=== PATIENT | male | born 1990 | race Two or more races ===

== ENCOUNTER 2019-04-08 12:52 | Emergency (ER) | payer SELFPAY ==
--- NOTE | 2019-04-08 13:21 | ER Document Report ---
ED General - General Chief Complaint: Dizziness Stated Complaint: LEFT HAND PAIN,DIZZINESS Time Seen by Provider: 04/08/19 13:04 Primary Care Provider: [facility] [Provider Group] - Follow up as needed Mode of Arrival: Ambulatory Information source: Patient Notes: This 28-year-old healthy male presents the emergency department with complaints of left hand numbness for the past 2 months since he received a tattoo on his left wrist. Patient is right-hand dominant. He also reports that he became extremely dizzy today at work and is feeling increasingly tired. He denies fever vomiting diarrhea. Denies trauma. Reports he has done push-ups for most of his life but no recent heavy lifting of weights. Reports feels like his heart skips a beat every now and then. Reports family history of cardiac disease. TRAVEL OUTSIDE OF THE [place] IN LAST 30 DAYS: No - HPI Onset: Other Onset/Duration: Persistent Quality of pain: No pain Associated symptoms: None Exacerbated by: Denies Relieved by: Denies Similar symptoms previously: No Recently seen / treated by doctor: No - Related Data Allergies/Adverse Reactions: No Known Allergies Allergy (Verified 06/23/16 14:41) Past Medical History - General Information source: Patient - Social History Smoking Status: Current Every Day Smoker Cigarette use (# per day): Yes Frequency of alcohol use: Occasional Drug Abuse: Marijuana Occupation: [employer] Lives with: Family Family History: CAD, CVA, DM, Hyperlipidemia, Hypertension - Medical History Medical History: Negative Neurological Medical History: Reports: Hx Migraine Surgical Hx: Negative - Immunizations Hx Diphtheria, Pertussis, Tetanus Vaccination: No Review of Systems - Review of Systems Notes: Review HPI for review of systems., All other systems negative Physical Exam - Vital signs Vitals: Temp Pulse Resp BP Pulse Ox 98.5 F 83 16 117/102 H 98 04/08/19 12:55 04/08/19 12:55 04/08/19 12:55 04/08/19 12:55 04/08/19 12:55 - General General appearance: Appears well, Alert In distress: None - HEENT Head: Normocephalic, Atraumatic Eyes: Normal - Respiratory Respiratory status: No respiratory distress Chest status: Nontender Breath sounds: Normal Chest palpation: Normal - Cardiovascular Rhythm: Regular Heart sounds: Normal auscultation Murmur: No - Abdominal Inspection: Normal Distension: No distension Tenderness: Nontender - Extremities General upper extremity: Nontender, Normal color, Normal ROM General lower extremity: Normal ROM Wrist: Nontender Hand: Nontender - Neurological Neuro grossly intact: Yes Cognition: Normal Orientation: AAOx4 [place] Coma Scale Eye Opening: Spontaneous [place] Coma Scale Verbal: Oriented [place] Coma Scale Motor: Obeys Commands [place] Coma Scale Total: 15 Speech: Normal Cranial nerves: Normal Cerebellar coordination: Normal Motor strength normal: LUE, RUE, LLE, RLE 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 No: Altered light touch, 2-pt discrimination, Pin-prick - Psychological Associated symptoms: Normal affect, Normal mood - Skin Skin Temperature: Warm Skin Moisture: Dry Skin Color: Normal Course - Re-evaluation Re-evalutation: 04/08/19 13:19 This 28-year-old male presents the emergency department with complaints that his left hand is numb for the past couple months since he received a tattoo on his left wrist. The wrist itself looks benign, tattoo in place no erythema no swelling no warmth. Patient reports he became very dizzy at work and his left hand numbness seemed more pronounced. He denies fever vomiting diarrhea. Denies trauma. Reports he feels like his heart skips a beat every now and then and also reports he is been feeling very tired. Will evaluate with EKG labs. Patient looks good nontoxic looking. Possible carpal tunnel on his left wrist. Labs unremarkable EKG was sinus rhythm with a PVC. No ST elevation no T wave inversion. Patient was instructed on all labs. Instructed to follow-up with the primary care provider given a list. 04/08/19 13:55 04/08/19 13:55 MCV 88 fl (80-97) 04/08/19 13:55 MCH 30.0 pg (27.0-33.4) 04/08/19 13:55 MCHC 34.1 g/dL (32.0-36.0) 04/08/19 13:55 RDW 13.0 % (11.5-14.0) 04/08/19 13:55 Seg Neutrophils % 56.2 % (42-78) 04/08/19 13:55 Lymphocytes % 31.3 % (13-45) 04/08/19 13:55 Monocytes % 7.1 % (3-13) 04/08/19 13:55 Eosinophils % 4.1 % (0-6) 04/08/19 13:55 Basophils % 1.3 % (0-2) 04/08/19 13:55 Absolute Neutrophils 4.7 10^3/uL (1.7-8.2) 04/08/19 13:55 Absolute Lymphocytes 2.6 10^3/uL (0.5-4.7) 04/08/19 13:55 Absolute Monocytes 0.6 10^3/uL (0.1-1.4) 04/08/19 13:55 Absolute Eosinophils 0.3 10^3/uL (0.0-0.6) 04/08/19 13:55 Absolute Basophils 0.1 10^3/uL (0.0-0.2) 04/08/19 13:55 Chloride 105 mmol/L (98-107) 04/08/19 13:55 Carbon Dioxide 28 mmol/L (22-30) 04/08/19 13:55 Anion Gap 10 (5-19) 04/08/19 13:55 Est GFR ( Amer) > 60 (>60) 04/08/19 13:55 Est GFR (Non-Af Amer) > 60 (>60) 04/08/19 13:55 Glucose 89 mg/dL (75-110) 04/08/19 13:55 Calcium 9.9 mg/dL (8.4-10.2) 04/08/19 13:55 Total Bilirubin 0.4 mg/dL (0.2-1.3) 04/08/19 13:55 AST 22 U/L (17-59) 04/08/19 13:55 Alkaline Phosphatase 49 U/L (38-126) 04/08/19 13:55 Total Protein 8.0 g/dL (6.3-8.2) 04/08/19 13:55 Albumin 4.7 g/dL (3.5-5.0) 04/08/19 13:55 Urine Color YELLOW 04/08/19 13:55 Urine Appearance CLEAR 04/08/19 13:55 Urine pH 5.0 (5.0-9.0) 04/08/19 13:55 Ur Specific [place] 1.020 04/08/19 13:55 Urine Protein NEGATIVE mg/dL (NEGATIVE) 04/08/19 13:55 Urine Glucose (UA) NEGATIVE mg/dL (NEGATIVE) 04/08/19 13:55 Urine Ketones NEGATIVE mg/dL (NEGATIVE) 04/08/19 13:55 Urine Blood NEGATIVE (NEGATIVE) 04/08/19 13:55 Urine Nitrite NEGATIVE (NEGATIVE) 04/08/19 13:55 Ur Leukocyte Esterase NEGATIVE (NEGATIVE) 04/08/19 13:55 Urine WBC (Auto) 0 /HPF 04/08/19 13:55 Urine RBC (Auto) 0 /HPF 04/08/19 13:55 - Vital Signs Vital signs: Temp Pulse Resp BP Pulse Ox 98.1 F 71 16 117/66 97 04/08/19 14:56 04/08/19 14:56 04/08/19 14:56 04/08/19 14:56 04/08/19 14:56 - Laboratory Result Diagrams: 04/08/19 13:55 04/08/19 13:55 - EKG Interpretation by [facility] EKG shows normal: Sinus rhythm Rate: Normal Rhythm: PVC's Additional EKG results interpreted by me: 04/08/19 14:[address] elevation Discharge - Discharge Clinical Impression: Left wrist numbness, Dizziness Condition: Stable Disposition: HOME, SELF-CARE Instructions: [facility], Dizziness ([facility]), Family Physicians / Practices Additional Instructions: *You have been evaluated for dizziness, left hand numbness *Follow up with a primary care provider within one week for recheck and referral as indicated to orthopedics *Return to ED for worsening condition, changes, needs *Return to ED if not better in 24 hours Monitor your blood pressure. Your blood pressure was elevated today. This may be because you were anxious, in pain or because you need medication. It is important to follow up with your primary care provider for full evaluation. Forms: Elevated Blood Pressure Referrals: [facility] [Provider Group] - Follow up as needed
[2019-04-08 14:11] LABS: ABSOLUTE BASOPHILS # (AUTO) 0.1 10^3/uL (0.0-0.2); ABSOLUTE EOSINOPHILS # (AUTO) 0.3 10^3/uL (0.0-0.6); ABSOLUTE LYMPHOCYTES (AUTO) 2.6 10^3/uL (0.5-4.7); ABSOLUTE MONOCYTES (AUTO) 0.6 10^3/uL (0.1-1.4); ABSOLUTE NEUT (AUTO) 4.7 10^3/uL (1.7-8.2); BASOPHILS % (AUTO) 1.3 % (0-2); EOSINOPHILS % (AUTO) 4.1 % (0-6); HEMATOCRIT 47.2 % (37.9-51.0); HEMOGLOBIN 16.1 g/dL (13.5-17.0); LYMPHOCYTES % (AUTO) 31.3 % (13-45); MEAN CORPUSCULAR HGB CONC 34.1 g/dL (32.0-36.0); MEAN CORPUSCULAR VOLUME 88 fl (80-97); MONOCYTES % (AUTO) 7.1 % (3-13); PLATELET COUNT 195 10^3/uL (150-450); RED BLOOD COUNT 5.37 10^6/uL (4.35-5.55); SEGMENTED NEUTROPHILS % (AUTO) 56.2 % (42-78); TOTAL CELLS COUNTED % (AUTO) 100 %; WHITE BLOOD COUNT 8.4 10^3/uL (4.0-10.5)
[2019-04-08 14:14] LABS: APPEARANCE,URINE CLEAR; BILIRUBIN,URINE NEGATIVE (NEGATIVE); COLOR,URINE YELLOW; GLUCOSE, URINE NEGATIVE (NEGATIVE); KETONES,URINE NEGATIVE (NEGATIVE); LEUKOCYTE ESTERASE,URINE NEGATIVE (NEGATIVE); NITRITE,URINE NEGATIVE (NEGATIVE); PROTEIN,URINE NEGATIVE (NEGATIVE); UROBILINOGEN,URINE NEGATIVE mg/dL (<2.0)
[2019-04-08 14:25] LABS: ALBUMIN 4.7 g/dL (3.5-5.0); ALKALINE PHOSPHATASE 49 U/L (38-126); ANION GAP 10 (5-19); ASPARTATE AMINO TRANSFERASE 22 U/L (17-59); BILIRUBIN,DIRECT 0.2 mg/dL (0.0-0.4); BILIRUBIN,TOTAL 0.4 mg/dL (0.2-1.3); BLOOD UREA NITROGEN 16 mg/dL (7-20); CALCIUM 9.9 mg/dL (8.4-10.2); CARBON DIOXIDE 28 mmol/L (22-30); CHLORIDE 105 mmol/L (98-107); GLUCOSE 89 mg/dL (75-110); POTASSIUM 4.4 mmol/L (3.6-5.0)
[2019-04-08 14:57] VITALS: BP 117/66
--- NOTE | 2019-04-09 01:55 | EKG REPORT ---
SEVERITY:- OTHERWISE NORMAL ECG - SINUS RHYTHM VENTRICULAR PREMATURE COMPLEX : Confirmed by: Inés Cuevas MD 09-Apr-2019 01:54:50
== END 2019-04-08 15:06 | disposition home or self-care (01) ==
LOC: ER 12:52
DX: R42 Dizziness and giddiness (principal); R20.0 Anesthesia of skin; I49.3 Ventricular premature depolarization; F17.210 Nicotine dependence, cigarettes, uncomplicated; Z82.49 Family history of ischemic heart disease and other diseases of the circulatory system
CPT/HCPCS: 36415; 80053; 81001; 85025; 93005; 93010; 99284